=== PATIENT | male | born 1940 | race Caucasian/White ===

== ENCOUNTER 2019-08-22 11:33 | Emergency (ER) | payer MEDICARE ==
[~2019-08-22] VITALS: Ht 185.4 cm; Wt 100.7 kg
[2019-08-22 13:28] LABS: BILIRUBIN,URINE NEGATIVE (NEG); CLARITY,URINE CLEAR; COLOR,URINE YELLOW; NITRITE,URINE NEGATIVE (NEG); PROTEIN,URINE >=300 mg/dL (NEG-TRACE); UROBILINOGEN,URINE 0.2 mg/dL (0.2 mg/dL)
[2019-08-22 13:34] LABS: BASO % 1 % (0-3); EOS % 0 % (0-3); HEMATOCRIT 38.5 % (39.0-53.0); LYMPH # 0.7 x10^3/uL (1.0-4.8); LYMPH % 26 % (24-48); MEAN CORPUSCULAR HEMOGLOBIN 29 pg (25-35); MEAN CORPUSCULAR HGB CONC 34 g/dL (31-37); MEAN CORPUSCULAR VOLUME 85 fL (79-100); MONO # 0.4 x10^3/uL (0.0-1.1); MONO % 14 % (0-9); NEUT # 1.7 x10^3/uL (1.8-7.7); NEUT % 59 % (31-73); PLATELET COUNT 107 x10^3/uL (140-400); RED BLOOD COUNT 4.51 x10^6/uL (4.30-5.70); RED CELL DISTRIBUTION WIDTH 14.5 % (11.5-14.5); WHITE BLOOD COUNT 2.8 x10^3/uL (4.0-11.0)
[2019-08-22 13:35] LABS: CALCIUM 8.3 mg/dL (8.5-10.1); CREATININE 3.3 mg/dL (0.7-1.3); GFR 18.2; POTASSIUM 4.9 mmol/L (3.5-5.1)
[2019-08-22 13:36] LABS: BACTERIA,URINE FEW /HPF (0-FEW); SQUAMOUS EPITHELIAL CELL,UR OCC /LPF; WBC,URINE OCC /HPF (0-4)
[2019-08-22 13:37] LABS: AMORPHOUS SEDIMENT,UR PRESENT /HPF
[2019-08-22 13:41] LABS: ALBUMIN 2.7 g/dL (3.4-5.0); ALBUMIN/GLOBULIN RATIO 0.8 (1.0-1.7); TOTAL BILIRUBIN 0.4 mg/dL (0.2-1.0); TOTAL PROTEIN 6.3 g/dL (6.4-8.2)
[2019-08-22 13:53] LABS: INFLUENZA A PATIENT NEGATIVE (NEGATIVE); INFLUENZA B PATIENT NEGATIVE (NEGATIVE)
[2019-08-22 14:47] VITALS: BP 135/60
--- NOTE | 2019-08-22 15:36 | PHYS DOC ---
Past Medical History Past Medical History: Diabetes-Type II, High Cholesterol, Hypertension, UTI Past Surgical History: Other Additional Past Surgical Histo: carotid artery Alcohol Use: Occasionally Drug Use: None Adult General Chief Complaint Chief Complaint: BLOOD SUGAR PROBLEM HPI HPI Patient is a 79 year old female who presents with abnormal outpatient labs. Patient has history of chronic renal failure and was told that his labs were worse than baseline by his nurse practitioner this morning. He is instructed to come to the emergency department. Patient denies decreased urinary output. D enies chest pain shortness of breath, increased leg pain or swelling. No earache frequency urgency or dysuria. No fever chills or sweats. No other acute symptoms or complaints.[] Review of Systems Review of Systems Review of symptoms as per history of present illness. All other review symptoms are negative.] All other systems were reviewed and found to be within normal limits, except as documented in this note. Allergies Allergies Allergies Coded Allergies Type Severity Reaction Last Updated Verified No Known Drug Allergies 08/22/19 No Physical Exam Physical Exam Constitutional: Well developed, well nourished, no acute distress, non-toxic appearance. [] HENT: Normocephalic, atraumatic, bilateral external ears normal, oropharynx moist, no oral exudates, nose normal. [] Eyes: PERRLA, EOMI, conjunctiva normal, no discharge. [] Neck: Normal range of motion, no tenderness. [] Cardiovascular:Heart rate regular rhythm, no murmur [] Lungs & Thorax: Bilateral breath sounds clear to auscultation [] Abdomen: Bowel sounds normal, soft, no tenderness. [] Skin: Warm, dry. [] Back: No tenderness. [] Extremities: No tenderness, no edema. [] Neurologic: Alert and oriented, normal motor function, normal sensory function, no focal deficits noted. [] Psychologic: Affect normal, judgement normal, mood normal. [] Current Patient Data Vital Signs Vital Signs Date Time Temp Pulse Resp B/P (MAP) Pulse Ox O2 Delivery O2 Flow Rate FiO2 08/22/19 12:15 98.0 83 16 182/82 (115) 98 Room Air 98.0 Lab Values Laboratory Tests Test 08/22/19 12:15 08/22/19 12:35 08/22/19 13:13 08/22/19 13:15 Urine Collection Type Unknown Urine Color Yellow Urine Clarity Clear Urine pH 5.0 Urine Specific [place] 1.020 Urine Protein >=300 mg/dL (NEG-TRACE) Urine Glucose (UA) 500 mg/dL (NEG) Urine Ketones (Stick) Negative mg/dL (NEG) Urine Blood Moderate (NEG) Urine Nitrite Negative (NEG) Urine Bilirubin Negative (NEG) Urine Urobilinogen Dipstick 0.2 mg/dL (0.2 mg/dL) Urine Leukocyte Esterase Negative (NEG) Urine RBC 1-2 /HPF (0-2) Urine WBC Occ /HPF (0-4) Urine Squamous Epithelial Cells Occ /LPF Urine Amorphous Sediment Present /HPF Urine Bacteria Few /HPF (0-FEW) Glucose (Fingerstick) 210 mg/dL (70-99) H White Blood Count 2.8 x10^3/uL (4.0-11.0) L Red Blood Count 4.51 x10^6/uL (4.30-5.70) Hemoglobin 13.0 g/dL (13.0-17.5) Hematocrit 38.5 % (39.0-53.0) L Mean Corpuscular Volume 85 fL (79-100) Mean Corpuscular Hemoglobin 29 pg (25-35) Mean Corpuscular Hemoglobin Concent 34 g/dL (31-37) Red Cell Distribution Width 14.5 % (11.5-14.5) Platelet Count 107 x10^3/uL (140-400) L Neutrophils (%) (Auto) 59 % (31-73) Lymphocytes (%) (Auto) 26 % (24-48) Monocytes (%) (Auto) 14 % (0-9) H Eosinophils (%) (Auto) 0 % (0-3) Basophils (%) (Auto) 1 % (0-3) Neutrophils # (Auto) 1.7 x10^3/uL (1.8-7.7) L Lymphocytes # (Auto) 0.7 x10^3/uL (1.0-4.8) L Monocytes # (Auto) 0.4 x10^3/uL (0.0-1.1) Eosinophils # (Auto) 0.0 x10^3/uL (0.0-0.7) Basophils # (Auto) 0.0 x10^3/uL (0.0-0.2) Sodium Level 132 mmol/L (136-145) L Potassium Level 4.9 mmol/L (3.5-5.1) Chloride Level 102 mmol/L (98-107) Carbon Dioxide Level 23 mmol/L (21-32) Anion Gap 7 (6-14) Blood Urea Nitrogen 46 mg/dL (8-26) H Creatinine 3.3 mg/dL (0.7-1.3) H Estimated GFR (Cockcroft-Gault) 18.2 BUN/Creatinine Ratio 14 (6-20) Glucose Level 214 mg/dL (70-99) H Calcium Level 8.3 mg/dL (8.5-10.1) L Total Bilirubin 0.4 mg/dL (0.2-1.0) Aspartate Amino Transferase (AST) 27 U/L (15-37) Alanine Aminotransferase (ALT) 33 U/L (16-63) Alkaline Phosphatase 67 U/L (46-116) Total Protein 6.3 g/dL (6.4-8.2) L Albumin 2.7 g/dL (3.4-5.0) L Albumin/Globulin Ratio 0.8 (1.0-1.7) L Influenza Type A Antigen Negative (NEGATIVE) Influenza Type B Antigen Negative (NEGATIVE) Laboratory Tests 08/22/19 13:13 Laboratory Tests 08/22/19 13:13 EKG EKG [] Radiology/Procedures Radiology/Procedures [] Course & Med Decision Making Course & Med Decision Making Pertinent Labs and Imaging studies reviewed. (See chart for details) [Case reviewed with the patient's primary care provider. Lab abnormalities chronic in nature and do not represent any acute change in condition or status. Patient denies complaints at this time. Recommend follow-up with patient's urologist for further evaluation] Dragon Disclaimer Dragon Disclaimer This electronic medical record was generated, in whole or in part, using a voice recognition dictation system. Departure Departure Impression: Primary Impression: Leukopenia Additional Impression: Chronic kidney disease Disposition: HOME, SELF-CARE Condition: STABLE Additional Instructions: You were evaluated in the emergency department for abnormal outpatient labs. Potassium today was 4.9 in the setting of chronic renal failure and a low white blood cell count of 2.9. Please continue home medications and follow up with your heading pinner for futher management as soon as possible. Problem Qualifiers SMILEY WHITE DO Aug 22, 2019 15:36
== END 2019-08-22 15:31 | disposition home or self-care (01) ==
LOC: ER 11:33
DX: E11.22 Type 2 diabetes mellitus with diabetic chronic kidney disease (principal); I12.9 Hypertensive chronic kidney disease with stage 1 through stage 4 chronic kidney disease, or unspecified chronic kidney disease; N18.9 Chronic kidney disease, unspecified; E78.00 Pure hypercholesterolemia, unspecified; Z98.890 Other specified postprocedural states
CPT/HCPCS: 36415; 80053; 81001; 82962; 85025; 87804; 99284

== ENCOUNTER 2020-08-18 10:03 | Outpatient (CLI) | payer MEDICARE ==
[~2020-08-18] VITALS: Ht 182.9 cm; Wt 83.5 kg
[2020-08-18] VITALS (7 sets, daily range): BP systolic 152–200; BP diastolic 66–90
[2020-08-18] MEDS ORDERED: TAMS0.4C97 PO (10:40)
[2020-08-18] MEDS ORDERED: ATOR10TA60 PO (10:40)
[2020-08-18] MEDS ORDERED: SODI1TAB11 PO (10:40)
[2020-08-18] MEDS ORDERED: GLIP10TA13 PO (10:40)
[2020-08-18] MEDS ORDERED: AMLO-186 PO (10:40)
[2020-08-18] MEDS ORDERED: LOSA-73 PO (10:40)
[2020-08-18] MEDS ORDERED: CARV3.1210 PO (10:40)
[2020-08-18 10:44] LABS: PROTHROMBIN TIME PATIENT 12.8 SEC (11.7-14.0)
[2020-08-18] MEDS ORDERED: MIDAZOLAM HCL/PF 2 MG/2 ML VIAL. ONE (10:54)
[2020-08-18] MEDS ORDERED: LIDOCAINE 1%/EPI 1:100,000 20 ML VIAL. ONE (10:54)
[2020-08-18] MEDS ORDERED: ONDANSETRON PF 4 MG/2 ML VIAL. ONE (10:54)
[2020-08-18] MEDS ORDERED: fentaNYL PF VIAL 100 MCG/2 ML VIAL ONE (10:54)
[2020-08-18] MEDS: fentaNYL PF VIAL 100 MCG/2 ML VIAL IV ONE (11:33)
[2020-08-18] MEDS: MIDAZOLAM HCL/PF 2 MG/2 ML VIAL. IV ONE (11:33)
[2020-08-18] MEDS: ONDANSETRON PF 4 MG/2 ML VIAL. IVP ONE (11:33)
[2020-08-18] MEDS: LIDOCAINE 1%/EPI 1:100,000 20 ML VIAL. SQ ONE (11:35)
--- NOTE | 2020-08-18 12:52 | RAD ---
Procedure: Tunneled hemodialysis catheter placement 08/18/2020 10:47 AM Clinical Indication: CHRONIC KIDNEY DISEASE Sterility: All elements of maximal sterile barrier technique including the use of a cap, mask, sterile gown, sterile gloves, large sterile sheet, appropriate hand hygiene, and 2% chlorhexidine for cutaneous antisepsis (or acceptable alternative antiseptic per current guidelines) were followed for this procedure. Consent: The procedure was explained in its entirety to the patient or the patients designated hr representative by a member of the treatment team, including a discussion of the risks, benefits and commonly accepted alternatives to the procedure, as well as the expected consequences of no therapy whatsoever. Discussion of the risks included, but was not limited to, those that are most frequent and those that are rare but possibly severe or life-threatening, as well as the possibility of unforeseen complications. Technique and Findings: Following informed consent, a timeout procedure was performed. The patient was prepped and draped in the usual sterile fashion. Ultrasound interrogation of the right neck revealed patency and compressibility of the right internal jugular vein. 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 A 21-gauge micropuncture was then used to gain access to this vein under ultrasound guidance. A hard copy ultrasound image was recorded. The needle was exchanged over a wire for a 4 [place] sheath which was used to guide an guidewire into the IVC. The skin over the right anterior chest wall was copiously anesthetized with 1% Lidocaine and a small dermatotomy was made. A 23 cm tipped cuff palindrome tunneled hemodialysis catheter was then tunneled subcutaneously towards the neck dermatotomy and deployed through a large caliber peel-away sheath under fluoroscopic guidance such that the distal tip resided in the mid right atrium. Manual flow rates were assessed and found to be within normal limits. The catheter was then flushed, packed with Heparin, capped, and sutured to the skin. The neck dermatotomy was closed with Dermabond. No immediate complications were identified. Sedation: Conscious sedation was administered for 20 minutes. The patient was monitored by a qualified independent observer throughout the time of sedation. Please refer to the medical record for exact doses of medications utilized to achieve moderate sedation. Fluoroscopy time: 1.4 min Dose area product: 6 gycm2 Impression: Tunneled hemodialysis catheter placement as described
--- NOTE | 2020-08-18 13:29 | NUR ---
Patient d/c-- taken to vehicle via wheelchair. , patient given instructions/education. Verbalized understanding. Patient hypertensive. Is due to take BP PO meds and is going to dialysis immediately following d/c from [facility]. Notified to monitor at home.
--- NOTE | 2020-08-18 13:57 | PDOC ---
Exam Screener Perfumer Screener Perfumer Shamir Pre-Procedure Diagnosis Pre-Procedure Diagnosis ESRD Post-Procedure Diagnosis Post-Procedure Diagnosis Same Procedure Performed Procedure Performed RIJ tunneled dialysis cath placement Type of Anesthesia Type of Anesthesia Mod Sed Estimated Blood Loss EBL: 10 Specimens Specimans None Drain/Tubes Drains/Tubes 23 cm palindrome right IJ Condition of Patient Condition of Patient stable Disposition Disposition to recovery area with expected Dc today FREDDY BUSTOS MD Aug 18, 2020 13:57
== END 2020-08-18 13:15 | disposition home or self-care (01) ==
LOC: INTRAD 10:03
PROVIDERS: ATTEND Internal Medicine Nephrology
DX: N18.6 End stage renal disease (principal); E11.22 Type 2 diabetes mellitus with diabetic chronic kidney disease; I12.0 Hypertensive chronic kidney disease with stage 5 chronic kidney disease or end stage renal disease; E78.00 Pure hypercholesterolemia, unspecified; N40.0 Benign prostatic hyperplasia without lower urinary tract symptoms; Z85.028 Personal history of other malignant neoplasm of stomach; Z85.828 Personal history of other malignant neoplasm of skin; Z85.6 Personal history of leukemia; Z87.440 Personal history of urinary (tract) infections; Z98.890 Other specified postprocedural states; Z79.899 Other long term (current) drug therapy
CPT/HCPCS: 36415; 36558; 76937; 77001; 85610; 99152; C1750; C1769; C1892; J0690; J2250; J2405; J3010; J3490